=== PATIENT | female | born 1940 | race Caucasian/White ===

== ENCOUNTER 2020-09-08 13:59 | Outpatient (CLI) | payer MEDICARE, SELFPAY ==
--- NOTE | 2020-09-08 14:08 | MR_ITS ---
WS: [id number] MRI RIGHT FOOT with and without CONTRAST. COMPARISON: None Multiplanar, multisequence imaging is performed with and without contrast. History: Lytic lesion on radiograph. History of breast cancer. Area of low signal on the T1 and increased signal on the T2 sequences involving the dorsal surface of the medial cuneiform. No significant enhancement. Maximum diameter of this signal abnormality at 11 mm. There is no fluid in the adjacent joint spaces. There is very mild erosive type changes noted on the sagittal image involving the distal medial cuneiform. This may be an inflammatory arthritic proce ss. In the proximal second metatarsal is an 8 mm area of increased T2 signal on the STIR sequences. W ith no enhancement. There is a marker placed over the distal second metatarsal in the area of pain. There is no abnormali ty at this level. MR/MR foot RT wo/w con [id number] IMPRESSION: 1. Small amount of edema and a small erosion involving the dorsal surface of t he medial cuneiform. Probably inflammatory arthritic reaction. 2. No fractures. 3. No prior radiographs are available for review to locate the previously desc ribed lytic area.
[2020-09-08] MEDS: gadobenate dimeglumine 20 mL vial IV (15:02)
== END 2020-09-08 14:00 | disposition home or self-care (01) ==
PROVIDERS: PCP Family Medicine; Visit Provider Family Medicine
DX: M89.9 Disorder of bone, unspecified (principal); M79.671 Pain in right foot; Z85.3 Personal history of malignant neoplasm of breast; R60.0 Localized edema; M85.871 Other specified disorders of bone density and structure, right ankle and foot
CPT/HCPCS: 73720; A9577